=== PATIENT | male | born 1960 | race Caucasian/White ===

== ENCOUNTER 2016-12-24 10:26 | Day surgery (SDC) | payer OTHER ==
[~2016-12-24] VITALS: Ht 170.2 cm; Wt 73.0 kg
[~2016-12-24 10:26] MED LIST: 0.9% Sodium Chloride 1,000 ML IV SCH; AGM875T PO; Sodium Chloride LOK Flush 10 mL Syringe IV PRN; fentaNYL-PF 50 mCg/mL 2 mL Inj IVPUSH PRN
[2016-12-24 11:08] VITALS: BP 129/77; PULSE 69; RESP 16; O2SAT 97
[2016-12-24 12:40] VITALS: BP 118/67; PULSE 77; RESP 17; O2SAT 95
[2016-12-24 12:54] VITALS: BP 105/57; PULSE 76; RESP 16; O2SAT 97
--- NOTE | 2016-12-24 13:01 | ENDO ---
[address] [address] ENDOSCOPY PROCEDURE PATIENT: JOSE ANTONIO PILLAI : 1960 MR#: [id number] ADMIT: 12/24/2016 JOB ID: [id number] DATE: 12/24/2016 PRIMARY PROVIDER: Ryne Ramsay DO PROCEDURE: Colonoscopy with cold snare polypectomy and cold forceps polypectomy. INDICATIONS: A 56-year-old male with a history of colon polyps, returning for surveillance. EQUIPMENT: BonzerDarg-H180DL. SEDATION: Versed 5 mg, 100 mcg fentanyl. COMPLICATIONS: None identified. BOWEL PREPARATION: Fair, adequate exam. PROCEDURE IN DETAIL: After the risks and benefits were explained, written and verbal informed consent was obtained. The patient was brought into the endoscopy suite and placed into the left lateral decubitus position. Sedation was achieved using the above-stated medications with the addition of oxygen via nasal cannula. A digital rectal examination was accomplished and did not elicit any obvious anorectal pathology. The scope was introduced into the rectum and advanced under direct visualization to the level of the cecum, as identified by the appendiceal orifice and ileocecal valve. The scope was slowly withdrawn to carefully examine the mucosa for any defects or lesions. Retroflexed views were accomplished in the rectum. The colon was decompressed. The scope removed from the patient who tolerated the procedure well. FINDINGS: Minimal diverticulosis in the left colon. There was a small polyp in the cecum measuring approximately 5-6 mm removed with cold snare. We initially hooked up for electrocautery, but the snare came through this polyp prior to stepping on the pedal. There were no hemorrhagic complications. There was a second polyp removed from mid colon by way of cold forceps, and these two were submitted as "colon polyps." In the rectum, there were several hyperplastic-appearing polyps. A couple of these were submitted for histopathology. ENDOSCOPIC DIAGNOSES: 1. Multiple colon polyps. 2. Diverticulosis. RECOMMENDATIONS: 1. Await histopathology. 2. If both rectal polyps are hyperplastic, then repeat colonoscopy in five years. If either of the polyps in the rectum were found to be adenomatous, then I would recommend a repeat colonoscopy in three years.
--- NOTE | 2016-12-25 17:31 | PATH ---
SURGICAL PATHOLOGY Attending Physician:Charles Seaman CASE STATUS: Signed Out PATIENT NAME: JOSE ANTONIO PILLAI PID: [id number] : 1960 DATE COLLECTED:12/24/2016 22:34 SPECIMEN: 1: Colon, Biopsy 2: Rectum, Biopsy CLINICAL HISTORY: 1. COLON POLYPS 2. RECTAL POLYP FINAL DIAGNOSIS: 1. Colon Polyps: Tubular adenoma, two fragments. 2. Rectal Polyp: Hyperplastic polyp. ICD10 D12.6 K62.1 GROSS DESCRIPTION: The specimen is received in two formalin filled containers labeled with the patient's name. 1). The specimen is sublabeled "colon polyps" and consists of 2 portions of tissue which aggregate to 0.3 x 0.3 x 0.2 CM. The specimen is entirely submitted in cassette 1A. 2). The specimen is sublabeled "rectal polyp" and consists of 2 portions of tissue which aggregate to 0.3 x 0.3 x 0.3 CM. The specimen is entirely submitted in cassette 2A. 12/24/2016 [facility] MICRO DESCRIPTION: Please see diagnosis. ICD-9 CODES: CPT CODES: 1: 40413 2: 19903 Electronically Signed Out Yin Ward MD [facility] [address], [place] [address] Technical component performed at [facility], [address] [place] [address] Ave[address], [place], [address]
== END 2016-12-24 23:59 | disposition home or self-care (01) ==
LOC: END 10:26
PROVIDERS: ATTEND Internal Medicine Gastroenterology
DX: Z12.11 Encounter for screening for malignant neoplasm of colon (principal); D12.0 Benign neoplasm of cecum; D12.6 Benign neoplasm of colon, unspecified; K62.1 Rectal polyp; K57.30 Diverticulosis of large intestine without perforation or abscess without bleeding; Z86.010 Personal history of colon polyps; F17.210 Nicotine dependence, cigarettes, uncomplicated
CPT/HCPCS: 45380; 45385; 88305; 99153; G0500; J2250; J7030

== ENCOUNTER 2017-02-14 11:05 | Emergency (ER) | payer OTHER ==
[~2017-02-14] VITALS: Ht 170.2 cm; Wt 72.7 kg
[2017-02-14 11:11] VITALS: BP 110/74; PULSE 60; RESP 16; O2SAT 100
[2017-02-14] MEDS ORDERED: NAPR220C11 PO (11:14)
--- NOTE | 2017-02-14 11:51 | ED.REPORT ---
HPI-URI / Cough / Cold Date of Service Feb 14, 2017 ED Provider: Awa Rehman History of Present Illness: 57-year-old male here for right-sided maxillary and frontal sinus pain. He has been having pain 1 month. It did start with a URI. After that URI started getting the right-sided face pain. He went to his doctor received a course of a penicillin-based antibiotic. Pain got better for one day after the antibiotic and then it came back. He visited his doctor again and got a Z-Landon the pain went away for 2 days after finishing the course, but pain returned He is been treating the pain effectively with Aleve. Sometimes he has to take double doses. He has not had any congestion on the right side, he has no fever and feels otherwise well. It is worse when he hangs his head below his waist line or when he is lying back. Drinking beer seems to exacerbate his symptoms. He is a smoker. If he does not take Aleve does turn into a bad headache as well. He has not been nauseous or vomiting. No cough or cold symptoms. He is otherwise healthy. Nursing Notes Stated Complaint: SINUS HEADACHES Chief Complaint: Headache Nursing Notes Reviewed: Yes Allergies: Coded Allergies: No Known Allergies (Unverified , 12/24/16) Scheduled Naproxen Sodium (Aleve) 220 Mg Capsule 1-2 TAB PO BID Prednisone (PredniSONE) 20 Mg Tablet 20 MG PO BID General Time Seen by MD: 11:22 Chief Complaint Facial pain Hx Obtained From: Patient Arrived By: Walk-in Onset Occurred: More than a week ago... (1 month) Symptom Duration: Waxes and wanes Location: : Sinus frontal right: Sinus maxillary right Quality: Painful Radiation: Does not radiate Severity: Current: Moderate Severity: Maximum: Severe Similar Sx Previous: Yes Past Medical History Past Medical History Notes: treated 2x with abx with no relief Past Medical History Reports: COPD Past Surgical History Denies Smoking History Current Every Day Smoker Social History Alcohol Use: 3-5 per day Other Social History: Good social support Ambulatory Status Independent Review of Systems Basic Review of Systems Cardiovascular: No chest pain, No dyspnea on exertion, No orthopnea, No parox noct dyspnea, No palpitations Musculoskeletal: No extremity swelling, No extremity pain, Full range of motion Hematologic: No bleeding, No bruising Psychiatric: Normal thought content Constitutional: Denies: Chills, Fatigue, Fever Eyes: Denies: Blurred left, Blurred right, Eye pain bilateral, Eye pain left, Eye pain right, Visual loss left, Visual loss right Ears / Nose / Throat: Reports: Sinus problem, Denies: Ear drainage left, Ear drainage right, Ear ringing bilateral, Earache bilateral, Hearing loss bilateral, Nasal congestion, Nose bleeding, Throat pain Respiratory: Denies: Dyspnea on exertion GI: Denies: Abdominal pain, Nausea, Vomiting Skin: Denies Bruising, Denies Diaphoresis Neurologic: Reports: Headache, Denies: Change LOC, Confusion, Dizziness, Focal weakness, Lightheaded, Numbness, Problem walking, Slurred speech, Syncope, Weakness Complete sys rev & neg: except as marked. Physical Exam Initial Vital Signs Vital Signs (First) Date Time Temp Pulse Resp B/P Pulse Ox O2 Delivery O2 Flow Rate FiO2 02/14/17 11:11 36.4 60 16 110/74 100 Room Air Initial VS: Reviewed Head / Eyes: Atraumatic, Normocephalic, PERRL Neck: Supple, Non-tender, Full range of motion Cardiovascular: Regular rate & rhythm, Heart sounds normal, Intact distal pulses Abdomen / GI: Soft, Non-tender Lymphatic: No lymphadenopathy Skin: Warm, Dry, No cyanosis Neurologic: Alert, Oriented, Nonfocal Psychiatric: Mood/affect normal, Behavior normal, Normal thought content ENT: Atraumatic, Airway patent, Mucous membranes moist, Pharynx NL, No peritonsillar abscess, No pooling of secretions, No trismus, Tympanic membs NL, Ext aud canal NL, Mastoid area NL, Nose exam NL, No sinus tenderness, No facial swelling, Gums/dentition NL Respiratory / Chest: Atraumatic, Breath sounds NL, Breath sounds = bilat, No respiratory distress, No rales, No rhonchi, No wheezing, No retractions Interpretation & Diagnostics Interpretation & Diagnostics: IMPRESSION: 1. Mucosal thickening in the right frontal sinus. 2. Mucous retention cysts versus polyps in the right maxillary sinus and the right sphenoid sinus. Re-Eval/Medical Decision Med Decision/Clinical Course Med Decision/Clinical Course: discussed mucosal thickening and polyps noted but no bacterial involvement. will do steroids and ENT f/u. May need sinus surgery in the future Discharge & Departure Shift Change Sign-Out Discussed Complaint(s): Yes Imaging Studies: Imaging discussed Impression: Primary Impression: Sinusitis with nasal polyps Disposition: Home Discharge Condition All VS Reviewed: Yes Condition: Stable Patient Instructions: Sinusitis (ED) Additional Instructions: Take steroids as directed for sinus symptoms. Follow up with ENT. If worsening symptoms, fever, no relief in pain return to the ER or follow-up immediately. Otherwise return as needed Referrals: Ryne Ramsay DO (PCP) Sukhjinder Guerrero MD EDSupervising Provider for APC: Vincenzo Chen MD copies to: Sukhjinder Guerrero MD, Linnea K ARNP Feb 14, 2017 11:51
--- NOTE | 2017-02-14 12:31 | DRSVH ---
PROCEDURE: CT SINUSES ([id number]) INDICATIONS: max/frontal sinus pain x 1 month TECHNIQUE: Noncontrast 3.0 mm axial images acquired from the frontal sinuses to the mid-sella, with coronal and sagittal reformats. COMPARISON: None. FINDINGS: Mild mucosal thickening noted in the right frontal sinus. Scattered opacities noted in the ethmoid a ir cells bilaterally. Large mucous retention cysts versus polyps are noted in the right maxillary si nus. Small mucous retention cyst is in noted in the right sphenoid sinus. The osteomeatal units are patent bilaterally. No solomon bullosa or paradoxical turbinates. Nasal septum is slightly deviated to the left. IMPRESSION: 1. Mucosal thickening in the right frontal sinus. 2. Mucous retention cysts versus polyps in the right maxillary sinus and the right sphenoid sinus. Dictated by: Estella Powell MD, PhD on 02/14/2017 at 12:27 Approved by: Estella Powell MD, PhD on 02/14/2017 at 12:30
[2017-02-14] MEDS ORDERED: PRE20 PO (13:14)
== END 2017-02-14 13:39 | disposition home or self-care (01) ==
LOC: SED 11:24
DX: J32.9 Chronic sinusitis, unspecified (principal); J33.8 Other polyp of sinus; J44.9 Chronic obstructive pulmonary disease, unspecified; F17.200 Nicotine dependence, unspecified, uncomplicated

== ENCOUNTER 2017-04-07 13:00 | Emergency (ER) | payer OTHER ==
[~2017-04-07] VITALS: Ht 170.2 cm; Wt 72.7 kg
[~2017-04-07 13:00] MED LIST changes: -0.9% Sodium Chloride 1,000 ML IV SCH; -AGM875T PO; +NAPR220C11 PO; +PRE20 PO; -Sodium Chloride LOK Flush 10 mL Syringe IV PRN; -fentaNYL-PF 50 mCg/mL 2 mL Inj IVPUSH PRN
[2017-04-07 13:17] VITALS: BP 136/79; PULSE 70; RESP 14; O2SAT 100
--- NOTE | 2017-04-07 13:21 | ED.REPORT ---
HPI-Chest Pain 40 and Over Date of Service April 07, 2017 ED Provider: Kameron Villalba DO A 57 year old male with a history of smoking, COPD and an episode of similar symptoms presents to the ED complaining of chest discomfort. He describes the discomfort as a tight feeling lasting 20 to 30 minutes that radiated into his jaw. The pain steadily increased and was not exacerbated by exertion. He denies shortness of breath, nausea, diaphoresis, abdominal pain or lower extremity edema. The pt experienced similar symptoms in 10/2016 just before a syncopal episode for which he was seen in the ED. The pt had sinus surgery six days ago and just finished his Prednisone last night. Nursing Notes Stated Complaint: JAW AND CHEST PAIN Chief Complaint: Chest Pain Nursing Notes Reviewed: Yes Allergies: Coded Allergies: No Known Allergies (Unverified , 12/24/16) Scheduled Naproxen Sodium (Aleve) 220 Mg Capsule 1-2 TAB PO BID Prednisone (PredniSONE) 20 Mg Tablet 20 MG PO BID General Time Seen by MD: 13:19 Chief Complaint Chest pain Hx Obtained From: Patient Arrived By: Walk-in Sudden in Onset?: Yes Onset Occurred: 31 - 45 minutes ago Symptom Duration: 16 - 30 minutes Recent Healthcare: Recent doctor visit, Recent hospitalization Similar Sx Previous: Yes Past Medical History Past Medical History syncope COPD Past Surgical History none reported Smoking History Current Every Day Smoker Social History Alcohol Use: 3-5 per day Other Social History: Good social support, Ambulatory Status Independent Review of Systems Review of Systems Note: "tight" chest discomfort jaw pain pale denies lower extremity edema Constitutional: Denies: Fever Respiratory: Denies: Shortness of breath GI: Denies: Abdominal pain, Nausea Skin: Denies Diaphoresis, Denies Rash Complete sys rev & neg: except as marked. Physical Exam Initial Vital Signs Vital Signs (First) Date Time Temp Pulse Resp B/P Pulse Ox O2 Delivery O2 Flow Rate FiO2 04/07/17 13:17 37 70 14 136/79 100 Initial VS: Reviewed General/Constitutional: Awake, Alert thin Respiratory / Chest: Atraumatic, Breath sounds NL, Breath sounds = bilat, No respiratory distress Cardiovascular: Heart rate NL, Regular rhythm, Heart sounds NL Abdomen: Atraumatic, Soft, Non-tender Neck: Atraumatic, Supple, Full range of motion Back: Atraumatic, Full range of motion Lower Extremity / Pelvis / MS: Atraumatic, Full range of motion Skin: Atraumatic, Color NL, No rash, Warm, Dry Neurologic: Oriented X3, Speech NL, No motor deficits, No sensory deficits Psychiatric: Affect NL, Mood NL Head / Eyes: Atraumatic, Normocephalic, PERRL, EOMI ENT: Atraumatic, Airway patent, Mucous membranes moist Upper Extremity / MS: Atraumatic, Full range of motion Interpretation & Diagnostics Lab Results Interpretation Result Diagram: 04/07/17 1310 04/07/17 1310 Test 04/07/17 13:10 White Blood Count 9.8th/mm3 (3.8-10.1) Red Blood Count 4.87mil/mm3 (4.40-5.80) Hemoglobin 15.2g/dL (13.8-17.2) Hematocrit 43.4% (41.0-50.0) Mean Corpuscular Volume 89.1fL (81-100) Mean Corpuscular Hemoglobin 31.2pg (27.0-35.0) Mean Corpuscular Hemoglobin Concent 35.0% (32.0-37.0) Red Cell Distribution Width 13.8% (12.3-15.4) Platelet Count 325bil/L (150-400) Neutrophils (%) (Auto) 72.0% (40-74) Lymphocytes (%) (Auto) 20.6% (14-46) Monocytes (%) (Auto) 6.4% (4-12) Eosinophils (%) (Auto) 0.4% (0-5) Basophils (%) (Auto) 0.1% (0-3) D-Dimer < 0.50mg/L FEU (<0.50) Sodium Level 138mEq/L (134-144) Potassium Level 4.0mEq/L (3.5-5.2) Chloride Level 97mEq/L (97-108) Carbon Dioxide Level 26mmol/L (18-29) Blood Urea Nitrogen 16mg/dL (6-24) Creatinine 0.69mg/dL (0.76-1.27) Estimat Glomerular Filtration Rate 125mL/min (>59) Glucose Level 95mg/dL (60-99) Calcium Level 9.7mg/dL (8.5-10.1) Magnesium Level 2.1mg/dL (1.6-2.6) Total Bilirubin 0.4mg/dL (0.0-1.2) Aspartate Amino Transf (AST/SGOT) 18U/L (0-50) Alanine Aminotransferase (ALT/SGPT) 23U/L (0-44) Alkaline Phosphatase 49U/L (25-160) Troponin T < 0.010ug/L (0.0-0.011) Total Protein 7.2g/dL (6.4-8.4) Albumin 4.5g/dL (3.4-5.0) ECG Interpretation ECG Interpretation: normal sinus rhythm with a rate of 67 probable anteroseptal infarct, old Time: 13:43 Interpreted by: ED physician X-Ray Chest Interpretation Chest Xray Interpretation: IMPRESSION: No acute cardiopulmonary disease. Dictated by: Rafi Thomson M.D. on 04/07/2017 at 13:57 Approved by: Rafi Thomson M.D. on 04/07/2017 at 13:58 Interpretation / Wet Read by: Interpret - Radiologist Re-Eval/Medical Decision Med Decision/Clinical Course Chest pain with radiation to jaw somewhat concerning for angina. Initial troponin negative however will need serial exams and further discussion regarding admission versus close follow-up and discharge. Care transferred to Dr. Claros Source of Hx: Old records Counseled Regarding: Diagnosis, Lab results, Need for follow-up, When/why to return to ED Discharge & Departure Shift Change Sign-Out Patient Care Transferred: Yes Discussed Complaint(s): Yes Laboratory Evaluation: Ordered, not yet done Imaging Studies: Imaging discussed Primary Impression: Chest pain Disposition: Home Discharge Condition All VS Reviewed: Yes Condition: Stable Referrals: [facility] [place]chely Attestation Portions of this note were transcribed by David Rosado. I, Dr. Villalba personally performed the history, physical exam and medical decision-making; I reviewed and confirmed the accuracy of the information in the transcribed note. Signed by: Natalie Acevedo, 04/07/2017 and 1429. copies to: [facility] DeejayKameron Moody April 07, 2017 13:21 DAVID ROSADO April 07, 2017 13:53
[2017-04-07 13:53] LABS: BASOPHILS % (AUTO) 0.1 % (0-3); EOSINOPHILS % (AUTO) 0.4 % (0-5); MONOCYTES % (AUTO) 6.4 % (4-12); Mean Corpuscular Hemoglobin 31.2 pg (27.0-35.0); Mean Corpuscular Volume 89.1 fL (81-100); Platelet Count 325 bil/L (150-400)
--- NOTE | 2017-04-07 13:59 | DRSVH ---
PROCEDURE: X-RAY CHEST ONE VIEW, PORTABLE ([id number]) INDICATIONS: 57-year-old male with episode of chest pain. TECHNIQUE: One view of the chest was acquired. COMPARISON: [facility], CR, CHEST 2VW, 06/05/2009, 10:08. FINDINGS: Surgical changes and devices: None. Lungs and pleura: No pleural effusions or pneumothorax. Lungs are clear. Mediastinum: Mediastinal contours appear normal. Heart size is normal. Bones and chest wall: No suspicious bony lesions. Overlying soft tissues appear unremarkable. IMPRESSION: No acute cardiopulmonary disease. Dictated by: Rafi Thomson M.D. on 04/07/2017 at 13:57 Approved by: Rafi Thomson M.D. on 04/07/2017 at 13:58
[2017-04-07 14:32] LABS: TROPONIN T < 0.010 ug/L (0.0-0.011)
[2017-04-07 14:33] LABS: Magnesium 2.1 mg/dL (1.6-2.6)
[2017-04-07 15:14] VITALS: BP 121/78; PULSE 72; RESP 13; O2SAT 98
[2017-04-07 15:57] VITALS: BP 125/68; PULSE 77; RESP 15; O2SAT 98
[2017-04-07 16:01] VITALS: BP 101/48; PULSE 131; RESP 15; O2SAT 99
[2017-04-07 17:41] VITALS: BP 133/70; PULSE 74; RESP 19; O2SAT 98
[2017-04-07 18:33] VITALS: BP 116/81; PULSE 93; RESP 23; O2SAT 97
[2017-04-07 19:27] LABS: BASOPHILS % (AUTO) 0.2 % (0-3); MONOCYTES % (AUTO) 10.4 % (4-12); Mean Corpuscular Hemoglobin 31.2 pg (27.0-35.0); Mean Corpuscular Volume 89.7 fL (81-100); Platelet Count 313 bil/L (150-400)
== END 2017-04-07 18:34 | disposition home or self-care (01) ==
LOC: SED 13:00 → EDBD 13:00 → EDUNIT# 13:00 → SED 18:34
DX: R07.89 Other chest pain (principal); J44.9 Chronic obstructive pulmonary disease, unspecified; F17.200 Nicotine dependence, unspecified, uncomplicated

== ENCOUNTER 2017-04-07 18:53 | Observation (INO) | payer OTHER ==
[2017-04-07] VITALS (8 sets, daily range): BP systolic 96–118; BP diastolic 56–80; PULSE 64–81; RESP 11–18; O2SAT 96–100
[~2017-04-07] VITALS: Ht 170.2 cm; Wt 69.2 kg
[2017-04-07] MEDS ORDERED: 0.9% Sodium Chloride 1,000 ML IV ONE ×2 (19:10→22:10)
--- NOTE | 2017-04-07 20:02 | DRSVH ---
PROCEDURE: CT ABDOMEN AND PELVIS WITH CONTRAST ([id number]) INDICATIONS: abd pain TECHNIQUE: After the administration of intravenous contrast, 5 mm thick sections acquired from the diaphragm to the symphysis. 5 mm coronal and sagittal reformats were acquired. For radiation dose reduction, the following was used: automated exposure control, adjustment of mA and/or kV according to patient raghav mo. COMPARISON: Located Within [facility], CT, CT ABD PELVIS W CON, 11/07/2016, 23:16. FINDINGS: Image quality: Excellent. ABDOMEN: Lung bases: Lung bases are clear. Heart size is normal. Solid organs: 4 mm hypodensity in the right lobe liver on image 22 is too small to characterize brown daniel unchanged since 11/07/16. Otherwise, liver and spleen are normal in size and enhancement. Gallbla dder unremarkable. Biliary system is non dilated. Pancreas enhances normally. No adrenal nodules. Simple appearing left renal cyst measuring 2 cm in the inferior pole, grossly unchanged. No hydroneph rosis. Peritoneum and bowel: Bowel loops demonstrate normal wall thickness and caliber. No free fluid or a ir. The appendix appears normal. The rectum contains a large amount of stool otherwise unremarkable. Nodes and vessels: No retroperitoneal or mesenteric adenopathy by size criteria. Aorta and inferior vena cava are normal in size. Miscellaneous: No ventral hernias. PELVIS: Genitourinary: Bladder wall thickness is normal. Miscellaneous: No inguinal hernias or adenopathy. Bones: No suspicious bony lesions. No vertebral body compression fractures. IMPRESSION: Overall, no acute abnormality. Normal appendix. Unchanged left renal cyst. Large amount of stool raising possibility of constipation or fecal impaction. Please correlate clinic ally Dictated by: Christofer Astudillo M.D. on 04/07/2017 at 19:55 Approved by: Christofer Astudillo M.D. on 04/07/2017 at 19:59
[2017-04-07 21:01] LABS: BASOPHILS % (AUTO) 0.2 % (0-3); MONOCYTES % (AUTO) 9.7 % (4-12); Mean Corpuscular Hemoglobin 31.5 pg (27.0-35.0); Mean Corpuscular Volume 89.9 fL (81-100); NEUTROPHILS % (AUTO) 61.9 % (40-74); Platelet Count 326 bil/L (150-400)
--- NOTE | 2017-04-07 21:32 | ED.REPORT ---
HPI-Syncope Date of Service April 07, 2017 ED Provider: Juan R Claros MD 57 y/o male with a hx of COPD and diverticulitis presents to the ED complaining of near syncope, onset today. The pt had been seen at the ED earlier today for chest discomfort which radiated to his jaw. He was discharged with a plan for follow up. On his drive back home from the ED, the pt began experiencing abdominal pain and near syncope. Associated sx include lightheadedness, dizziness and diaphoresis. Pt denies chest discomfort and jaw pain. Nursing Notes Stated Complaint: BLACKING OUT, DIZZY Chief Complaint: General Complaint Nursing Notes Reviewed: Yes ([employer], ) Allergies: Coded Allergies: No Known Allergies (Unverified , 04/07/17) No Active Prescriptions or Reported Meds General Time Seen by Provider: 19:08 Chief Complaint Other (near syncope) Syncope Description: This episode different Hx Obtained From: Patient, Spouse Arrived By: Walk-in Onset Occurred: Just prior to arrival Context of Onset: Abdominal pain preceded Location: : Abdomen Quality: Painful Severity: Current: Mild Severity: Maximum: Mild Recent Healthcare: Recent doctor visit (just left ED) Similar Sx Previous: No Past Medical History Past Medical History Notes: Past Medical History syncope COPD Reports: Diverticulitis Past Surgical History none reported Smoking History Current Every Day Smoker Social History Alcohol Use: 3-5 per day Other Social History: Good social support, Ambulatory Status Independent Review of Systems Cardiovascular: Denies: Chest pain GI: Reports: Abdominal pain, Denies: Nausea, Vomiting Skin: Reports Diaphoresis Neurologic: Reports: Dizziness, Lightheaded, Syncope Complete sys rev & neg: except as marked. Physical Exam Initial Vital Signs Vital Signs (First) Date Time Temp Pulse Resp B/P Pulse Ox O2 Delivery O2 Flow Rate FiO2 04/07/17 18:59 36.5 68 12 96/56 100 Room Air Initial VS: Reviewed Head / Eyes: Atraumatic, Normocephalic, PERRL ENT: Mucous membranes moist, Conjunctiva normal, No scleral icterus Neck: Supple, Non-tender, Full range of motion Upper Extremities: Vascular intact, Neuro intact, No swelling, No tenderness Skin: Warm, Dry, No cyanosis General/Constitutional: Awake, Alert, Cooperative Appearance / Presentation: Positive: Ill appearing/not toxic resolving Diaphoresis Hypotensive -> this rapidly resolved Respiratory / Chest: Atraumatic, Breath sounds NL, Breath sounds = bilat, No respiratory distress, No rales, No rhonchi, No wheezing Cardiovascular: Heart rate NL, Regular rhythm, Heart sounds NL, No gallop, No murmurs Heart Sounds / Murmur: Negative: Murmur present... Lower Extremity / Pelvis / MS: Atraumatic, Full range of motion, No swelling Neurologic: Oriented X3, Speech NL, No motor deficits, No sensory deficits Abdomen: Atraumatic, Soft, Non-tender, No guarding, No rebound Abdominal pain has resolved. No abdominal aortic mass. No clinical tenderness Interpretation & Diagnostics Interpretation & Diagnostics: Please see the additional laboratory testing performed on previous ED visit hours earlier today Lab Results Interpretation Result Diagram: 04/07/17 1910 Test 04/07/17 19:10 White Blood Count 10.2th/mm3 (3.8-10.1) Red Blood Count 4.67mil/mm3 (4.40-5.80) Hemoglobin 14.7g/dL (13.8-17.2) Hematocrit 42.0% (41.0-50.0) Mean Corpuscular Volume 89.9fL (81-100) Mean Corpuscular Hemoglobin 31.5pg (27.0-35.0) Mean Corpuscular Hemoglobin Concent 35.0% (32.0-37.0) Red Cell Distribution Width 13.9% (12.3-15.4) Platelet Count 326bil/L (150-400) Neutrophils (%) (Auto) 61.9% (40-74) Lymphocytes (%) (Auto) 26.6% (14-46) Monocytes (%) (Auto) 9.7% (4-12) Eosinophils (%) (Auto) 1.0% (0-5) Basophils (%) (Auto) 0.2% (0-3) Troponin T 0.010ug/L (0.0-0.011) Thyroid Stimulating Hormone (TSH) 3.160uIU/mL (0.450-4.500) Lab Results Interpretation: Repeat CBC normal repeat troponin negative ECG Interpretation ECG Interpretation: Repeat EKG is normal and unchanged from earlier today at 13:43 normal sinus rhythm with a rate of 67 probable anteroseptal infarct, old Time: 19:00 Interpreted by: ED physician CT Abd / Pelvis Interpretation IMPRESSION: Overall, no acute abnormality. Normal appendix. Unchanged left renal cyst. Large amount of stool raising possibility of constipation or fecal impaction. Please correlate clinically Dictated by: Christofer Astudillo M.D. on 04/07/2017 at 19:55 Approved by: Christofer Astudillo M.D. on 04/07/2017 at 19:59 Study type: Abdominal CT IV contrast Interpretation / Wet Read by: Interpret - Radiologist Re-Eval/Medical Decision Med Decision/Clinical Course His is a 57-year-old male A chest seen and discharged following an evaluation for an episode of chest discomfort rating the jaw. EKGs, several sets of enzymes, no heart score was discharged with plan for follow-up. I run the drive home he developed abdominal pain, and became lightheaded and dizzy and near syncopal. He did not have chest pain, jaw discomfort and reports these are entirely different symptoms than he had previously that he been seen in the emergency department for. He has had a previous episode of syncope and describes a vasovagal diagnosis. I according to the nurses on initial arrival he appeared very ill, diaphoretic, and was hypotensive-all of these resolved rapidly. No dysrhythmia was identified. He did not have clinical palpitations. Abdominal pain when this initially happened, but even that is now resolved when I see him. On exam very much more fatigued-appearing he appeared normal when he left just previously. He has resolving diaphoresis. His repeat exams otherwise normal, abdomen soft nontender no appreciate an abdominal aortic mass. Repeat EKG is normal, unchanged. Repeat CBC, unchanged. A third troponin was obtained and was negative. At this point an abdominal CT was also obtained given the etiology of the presentation still remains unclear, and it was negative for clear acute pathology. This point a definitive etiology for these constellations of symptoms either the chest discomfort he had earlier today or the abdominal pain and syncope/ near syncope expresses a has not been identified. His d-dimer was negative, no features suggestive ulnar embolism. At this point is being admitted observation status for continued monitoring and evaluation. Case discussed the hospice. Source of Hx: Old records Re-Evaluation/Progress #1: Time of Eval: 19:25 Re-Evaluation/Progress Note: Rechecked pt. He reports little improvement in his sx. Informed the pt of the plan to admit. Re-Evaluation/Progress #2: Time of Eval: 20:10 Re-Evaluation/Progress Note: Pt rechecked. Discussed lab, imaging results and plan to admit. Pt understands and agrees with the plan for admission. All questions addressed Consultation : Referral / Consult Name: James Blount MD Consulted With: Hospitalist Call Returned at: 20:30 Environmental Journalist: Will see patient, Agrees with eval, Accepts admit Differential Diagnosis: Negative: Abdominal aortic aneurysm, Alcohol abuse, Cerebrovascular accident, Chest pain, acute, Closed head injury, Electrolyte disorder, Head trauma, Hypoglycemia, Intracranial bleed, Malingering, Prolonged QT syndrome, Thoracic aortic dissect Counseled Regarding: Diagnosis, Lab results, Need for admission Discharge & Departure Impression: Primary Impression: Near syncope Additional Impressions: Abdominal pain Abdominal location: unspecified location Qualified Code: R10.9 - Unspecified abdominal pain Chest pain Chest pain type: unspecified Qualified Code: R07.9 - Chest pain, unspecified Disposition: ADMITTED TO HOSPITAL Discharge Condition All VS Reviewed: Yes Referrals: Ryne Ramsay DO (PCP) Scribe Attestation Portions of this note were transcribed by Yudelka Ding. I, , personally performed the history, physical exam and medical decision-making;I reviewed and confirmed the accuracy of the information in the transcribed note. Signed by Natalie Membreno. 04/07/17 [id number] copies to: Ryne Ramsay Matthew F MD April 07, 2017 21:32 Yudelka Ding April 07, 2017 22:05
[2017-04-07] MEDS ORDERED: Senna-Docusate 8.6-50 mg Tablet PO PRN (21:55)
[2017-04-07] MEDS ORDERED: Alum-Mag Hydrox-Simeth 30 mL Suspension PO PRN (21:55)
[2017-04-07] MEDS ORDERED: Ondansetron 2 mg/mL 2 mL Inj IVPUSH PRN (21:55)
[2017-04-07] MEDS ORDERED: Polyethylene Glycol (PEG) 17 Gm Powder PO PRN (21:55)
--- NOTE | 2017-04-07 23:27 | NUR ---
admit: admit assessment complete. pt A&OX3. reports having recent sinus surgery with stent placement X7days ago, reports f/u appt for this procedure and stent removal was suppose to be tomorrow. pt denies pain at this time. IVF infusing per orders. pt aware of plane, stress test and echo in am. will continue to monitor pt.
--- NOTE | 2017-04-08 00:23 | PCM.HPMED ---
Subjective Date of Service April 07, 2017 Primary Provider: Admitting Physician: Primary Care Physician: Ryne Ramsay DO Attending Physician: Chief Complaint: chest pain History of Present Illness: 57-year-old male with history of tobacco dependence, COPD, and chronic sinusitis with recent ENT surgery who originally presented to the ED earlier today for complaints of chest pressure with right jaw pain that began around lunchtime. Patient described that chest pressure as a dull substernal ache that lasted about 20-30 minutes and reported radiation to his right jaw. The patient noted previous right jaw pain but not to this extent so he was worried and came in for evaluation. He also noted some mild numbness and tingling of his fingertips with the chest pain episode, but denied any shortness of breath, nausea, diaphoresis, dizziness, vision changes, focal weakness, or headache. By the time he reached the ED his symptoms had resolved. In the ED, his vitals were noted to be normal and stable. His CBC and CMP were unremarkable and he had troponins needed 3. He also had a benign EKG, so he was discharged home with instructions to follow up with PCP for an outpatient stress test. After discharge, on the way home patient noted that he acutely became dizzy and had a near syncopal episode. Luckily his is driving and return back to the ER for further evaluation. It was noted by ER staff that on re-admission, patient was pale, diaphoretic, and lethargic. He was noted to be hypotensive with a blood pressure 96/56, but remain afebrile with a pulse of 68, saturating 100% percent on room air. A repeat EKG was performed, which showed normal sinus rhythm with a rate of 67 and probable anteroseptal old infarct. This was essentially unchanged. Patient did complain of some abdominal pain upon arrival to the ER so a CT abdomen was performed, which showed moderate stool impaction but no other acute disease. Patient reports that with the second incident he did not have any chest pain, shortness of breath, jaw pain, or headache. He did not notice any triggers and reports he has not had any URI symptoms recently. He reports he had a similar presentation last October when he had a syncopal episode, was taken to the ER, and subsequently diagnosed with diverticulitis with stool impaction. He reports he was sent home with antibiotics. Subsequent outpatient colonoscopy showed diverticulosis with a couple tubular adenoma polyps. Prior to today, patient reports he has been at baseline. He is able to perform his ADLs without any dyspnea or chest pain. He denies any recent medication changes, but has been on multiple antibiotic courses for his sinusitis. He recently has sinus surgery with ENT and just completed a short prednisone course. Prior to the surgery he was taking plenty of narcotics, he reports, but he has tapered himself off of that has not taken any in the past few days. He reports he generally drinks 3-6 beers per night, but has not had any since the surgery one week ago. Denies any illicit drug usage. 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 Hx Alcohol Use: Yes (DAILY 3-6 BEERS /DAY ) Hx Substance Use: No Smoking Status: Current Every Day Smoker (1 ppd) Living Arrangement: with Family Exam Vital Signs Vital Sign - Last Date Time Temp Pulse Resp B/P Pulse Ox O2 Delivery O2 Flow Rate FiO2 04/07/17 20:41 81 15 108/57 96 Room Air 04/07/17 18:59 36.5 Exam General: Well-developed male who appears in no acute distress, alert and oriented 3 HEENT: NC/AT, PERRLA, EOMI, sclerae anicteric, oropharynx moist and pink Neck: Soft, nontender, trachea midline CV: Regular rate and rhythm with no M/R/C noted, peripheral pulses intact and equal Respiratory: Mild end expiratory wheeze, no rhonchi or crackles, no respiratory effort, chest nontender to palpation Abdomen: Soft, nontender, nondistended, NABS MSK: Muscle strength grossly intact and equal, no swollen or tender joints, no clubbing or edema noted Neuro: Cranial nerves II at 12 grossly intact, face symmetric, speaks full sentences Skin: Warm, dry, intact, no rashes noted Psych: Appropriate mood and affect, linear thought process, cooperative Lab and Diagnostics Result Diagram: 04/07/171909 X-Rays, CTs and MRIs PROCEDURE: X-RAY CHEST ONE VIEW, PORTABLE ([id number]) IMPRESSION: No acute cardiopulmonary disease. PROCEDURE: CT ABDOMEN AND PELVIS WITH CONTRAST ([id number]) IMPRESSION: Overall, no acute abnormality. Normal appendix. Unchanged left renal cyst. Large amount of stool raising possibility of constipation or fecal impaction. Please correlate clinically 12-lead ECG normal sinus rhythm with a rate of 67 probable anteroseptal infarct, old Assessment & Plan 57-year-old male with history of tobacco dependence, COPD, and chronic sinusitis with recent ENT surgery who originally presented to the ED earlier today for complaints of chest pressure with right jaw pain that began around lunchtime. He was discharged home and then returned for a near syncopal episode shortly after discharge. Near syncopal episode, POA Uncertain of etiology. Ddx vasovagal, aortic insufficiency, hypoglycemia, orthostatic hypotension, hypoxia. No trauma noted, no seizure-like activity noted by Will place on telemetry for CV monitoring Patient is mildly hypotensive, will obtain orthostatic vital signs, and give IV NS 150 mL per hour Chest pain, POA Patient had brief substernal chest pain this morning with concerning right sided jaw radiation. Troponins have been negative 3, though with patient's concerning near syncopal episode We will plan to obtain an echocardiogram and stress test COPD, POA Not in acute exacerbation DuoNeb when necessary for shortness of breath Recommend outpatient follow-up Tobacco Dependence, POA Cessation encouraged Nicotine patch when necessary Tylenol when necessary for pain/fever Zofran when necessary for nausea Bowel regimen when necessary constipation CODE STATUS: Full resuscitation Disposition: Patient is admitted under observation status with expected length of stay less than 2 midnights due to risk of adverse events, decompensation, and medical complexity Pain Evaluation: Adequate Pain Control VTE Prophylaxis: Sub-Q Enoxaparin, SCDs Resuscitation Status: CPR: Attempt Resuscitation Attending Statement The patient was seen and examined together with Dr. Torres on 04/07 and I agree with the history, exam and plan as outlined in the note above. Kunal Torres DO April 07, 2017 21:35 James Blount MD April 08, 2017 02:27
[2017-04-08] MEDS: Sodium Chloride LOK Flush 10 mL Syringe IVFLUSH SCH ×3 (00:30→16:38)
[2017-04-08 04:06] VITALS: BP 123/84; PULSE 69; RESP 18; O2SAT 99
[2017-04-08 06:34] LABS: BASOPHILS % (AUTO) 0.1 % (0-3); MONOCYTES % (AUTO) 10.3 % (4-12); Mean Corpuscular Hemoglobin 30.7 pg (27.0-35.0); Mean Corpuscular Volume 91.1 fL (81-100); NEUTROPHILS % (AUTO) 68.2 % (40-74); Platelet Count 288 bil/L (150-400)
[2017-04-08 07:01] LABS: TROPONIN T 0.01 ug/L (0.0-0.011)
[2017-04-08 10:01] VITALS: BP 120/83; PULSE 72; RESP 18; O2SAT 98
[2017-04-08 11:03] VITALS: PULSE 84
--- NOTE | 2017-04-08 12:13 | NUR ---
Refusal of MIBI Pt refused to go to MIBI this morning due to concerns with recent sinus surgery. Pt is req that hospitalist and ENT MD communicate to ensure testing is safe. Hospitalist on unit and informed of pt's concerns.
--- NOTE | 2017-04-08 12:24 | NUR ---
Communication with ENT Phoned [facility] ([phone]) in an attempt to reach Dr Guerrero to clarify that pt is stable to do stress test today. Per office, MD's do not accept paged during lunch hour - message left to call this RN back when available. Addendum: 04/08/17 at 1401 by DEB DEJESUS RN Spoke with ENT MD Guerrero's MA re: stress test (specifically treadmill and pt's concerns) and per MD he is able to do the test with no concerns. [facility] notified that pt is able to test per ENT and hospitalist aware as well.
--- NOTE | 2017-04-08 13:38 | DRSVH ---
[facility] [address] [place] [address] Echocardiogram Report Name: JOSE ANTONIO PILLAI Date: 04/08/2017 Height: 67 in Hospital Exam Location: [facility] Weight: 157 lb Gender: Male BSA: 1.8 m2 : 1960 Age: 57 yrs BP: 123/67 mmHg Reason For Study: Chest pain Ordering Physician: James Bettencourt Performed By: Will Starr Referring Physician: SHAYY ONEAL Interpretation Summary The ejection fraction is estimated to be 50-55%. A patent foramen ovale is present. There is no significant valvular heart disease. Procedure: A two-dimensional transthoracic echocardiogram with color flow and Doppler was performed. There is no prior echocardiogram noted for this patient. The study quality was technically adequate. The patient was in normal sinus rhythm during the exam. Left Ventricle: The left ventricle is normal in size. There is normal left ventricular wall thickness. The ejection fraction is estimated to be 50-55%. Spectral Doppler of the mitral inflow yields an E/A ratio that is between 0.8 and 1.5. Right Ventricle: The right ventricle is normal in size and function. Atria: The left atrial size is normal. Right atrial size is normal. Borderline right atrial enlargement. A patent foramen ovale is present. Mitral Valve: The mitral valve is normal in structure and function. There is trace mitral regurgitation. Aortic Valve: The aortic valve is normal in structure and function. There is trace aortic regurgitation. Tricuspid Valve: The tricuspid valve is normal in structure and function. Pulmonary artery pressures cannot be estimated because of the lack of a measurable TR jet velocity. There is trace tricuspid regurgitation. Pulmonic Valve: The pulmonic valve is normal in structure and function. There is trace pulmonic regurgitation. Great Vessels: The aortic root is normal size. The dimensions of the ascending aorta are normal. The pulmonary artery is normal size. Pericardium/ Pleura There is no pericardial effusion. There is no pleural effusion. MMode/2D Measurements & Calculations LVIDd: 4.1 cm RA long axis LVOT diam LVIDs: 3.1 cm LA A2 area: 25.6 cm FS: 23.7 % LA A4 area: 19.3 cm RA area AoV Opening EPSS: 0.74 cm LA length (vol): 6.8 cm IVSd: 0.96 cm LA vol: 61.3 ml : 22.6 cm Ao root diam LVPWd: 1.0 cm LA vol index RA vol : 73.6 ml Aortic Jxn RA IVC diam: 1.8 cm : 40.4 mm2 asc Aorta Diam: 3.9 cm LV ruth. diameter/BSA LV sys. diameter/BSA RVD1 (basal) RVD2 (mid) (cm/m^2): 2.3 (cm/m^2): 1.7 : 2.8 cm TAPSE: 2.7 cm Doppler Measurements & Calculations Ao V2 max MV E max quinn MV E/A: 1.1 PA V2 max : 120.1 cm/sec : 70.8 cm/sec Med Peak E' Quinn : 67.5 cm/sec Ao max PG MV A max quinn PA mean PG : 5.8 mmHg : 62.5 cm/sec E/E' med: 9.4 : 1.1 mmHg Ao mean PG MV P1/2t: 59.5 msec Lat Peak E' Quinn LVOT Max Quinn E/E' lat: 6.8 : 100.8 cm/sec E/e' average: 8.1 Pulm A Revs Dur KURT(I,D): 3.6 cm sev ratio MV A dur: 0.11 sec MV dec time MV P1/2t max quinn Ao V2 mean LV V1 max PG : 0.20 sec : 85.5 cm/sec MVA(P1/2t): 3.7 cm2 Ao V2 VTI: 25.1 cm LV V1 VTI KURT(V,D): 3.4 cm2 : 22.1 cm PA V2 mean KURT indexed to BSA Pulm A Revs Dur - MV A : 50.1 cm/sec (cm^2/m^2): 2.0 Dur: 0.00 msec PA pr(Accel) : 9.6 mmHg Electronically signed by: Donny Phipps on Reading Physician:04/08/2017 01:37 PM
--- NOTE | 2017-04-08 14:30 | NUR ---
Off unit Pt off unit to stress test, [employer] notified. Addendum: 04/08/17 at 1658 by DEB DEEJSUS RN Pt back on unit, [employer] notified.
--- NOTE | 2017-04-08 15:10 | NUR ---
Social Work-screenign: Data:EMR reviewed. Pt is a 57 y/o male who was admitted on 04/07/17 for chest pain per H&P. Pt's insurance is [employer] and PCP is Simon Ramsay DO. EMR reviewed. SW met with pt and Eula [phone] to discuss discharge planning, SW role explained. Pt is alert and oriented x3. Pt resides at home with his where he remains independent with ADLs. Pt drives and does not use any DME. Pt has no HH Or SNF history. SW discussed DPOA/ advanced directive, pt confirms he has completed this. Pt and decline any SW needs. Pt's to provide transport home at discharge. SW provided phone number and plan on white board in room. No anticipated discharge needs. SW will continue to follow if needs arise. Assessment:Pt who is independent at baseline. Plan:Pt to discharge home when medically stable via POV. No anticipated discharge needs. SW will continue to follow if needs arise [facility]
[2017-04-08 16:56] VITALS: BP 126/76; PULSE 76; RESP 18; O2SAT 97
--- NOTE | 2017-04-08 17:14 | DRSVH ---
PROCEDURE: EITHER REST OR STRESS ONLY Pharmacological stress myocardial perfusion SPECT with gated imaging and ejection fraction. RADIOPHARMACEUTICAL: 21.6 mCi of Tc-99m tetrafosmin intravenously at peak pharmacologic stress. INDICATIONS: 57-year-old male with chest pain and jaw pain. The patient has history of syncope. Evalu ate myocardial ischemia. TECHNIQUE: Radiopharmaceutical was injected at peak stress test. SPECT images were obtained. SPECT myocardial perfusion images were displayed in short axis, horizontal long axis, and vertical long ax is views. Gated images were reviewed using [employer] software. COMPARISON: None. CARDIAC STRESS: A pharmacologic stress test was performed under the supervision of an attending staff, using an infus ion of Lexiscan. Hemodynamic data: There is hypotensive normal heart rate response to pharmacologic stress. Symptoms: The patient denied anginal chest pain during drug infusion. Aminophylline: 100 mg EKG: No diagnostic EKG changes of ischemia; no ectopy. FINDINGS: Raw data: There is good tracer uptake by the myocardium. No significant motion artifacts. Left ventricular function: Gated images demonstrate normal left ventricle wall thickening. No segme ntal wall motion abnormalities. Left ventricle end-diastolic volume is normal. Left ventricle stres s ejection fraction is greater than 56%; normal values are above 45%. Myocardial perfusion: There is normal distribution of activity in the left and right ventricular katie cardium. No perfusion defects. IMPRESSION: 1. Normal pharmacological stress myocardial perfusion images. 2. Normal left ventricular volume and systolic function. 3. Hypotensive response to Lexiscan infusion. No chest pain or diagnostic EKG changes for ischemia. PQRS ATTESTATIONS: Measure 322 - Is this imaging test primarily performed on a low-risk surgery patient for preoperative evaluation within 30 days preceding their low-risk non-cardiac surgery? Low-risk surgery is defined as cardiac or myocardial infarction less than 1%, including (but not limited to) endoscopic pr ocedures, superficial procedures, cataract surgery, and excisional breast surgery: Answer: No Measure 323 - Is this imaging test performed primarily for the monitoring of an asymptomatic patient who had percutaneous coronary intervention on the visit date or within 2 years of the visit date? An swer: No Measure 324 - Is this imaging test performed primarily for the initial detection and risk assessment on an asymptomatic, low coronary heart disease patient? Low CHD risk definition = clinicians should consider the maximum number of available patient factors used to estimate risk based on [place] (A TP III criteria), typically age, gender, diabetes, smoking status, and use of blood pressure medicati on, and integrate age appropriate estimates for missing elements, such as LDL or standard blood press ure. Answer: No Dictated by: Remingotn Mauro M.D. on 04/08/2017 at 17:09 Approved by: Remington Mauro M.D. on 04/08/2017 at 17:12
[2017-04-08] MEDS ORDERED: Polyethylene Glycol (PEG) 17 Gm Powder PO ONE (18:50)
--- NOTE | 2017-04-08 18:57 | PCM.PNMED ---
Subjective Date of Service April 08, 2017 Subjective Patient has had an uneventfull day, MPS negative, echo unrevealing. Fecal impaction noted, one bm today so far. Exam Vital Signs Vital Sign - Last Date Time Temp Pulse Resp B/P Pulse Ox O2 Delivery O2 Flow Rate FiO2 04/08/17 16:56 36.7 76 18 126/76 97 Room Air Intake and Output 04/07/17 04/07/17 04/08/17 Cumulative From/Thru 15:00 23:00 07:00 04/07/17 18:59 - 04/08/17 06:55 Intake Total 1000 ml 1300 ml 2300 ml Output Total 1625 ml 1625 ml Balance 1000 ml -325 ml 675 ml Intake Oral 250 ml 250 ml IV Total 1000 ml 1050 ml 2050 ml Output Urine Total 1625 ml 1625 ml Exam Cardia regular no murmur Resp, clear to ap GI, diffuse tenderness, throughout. skin clear no rash Lab and Diagnostics Result Diagram: 04/08/1761904/08/17 0620 X-Rays, CTs and MRIs PROCEDURE: X-RAY CHEST ONE VIEW, PORTABLE ([id number]) IMPRESSION: No acute cardiopulmonary disease. PROCEDURE: CT ABDOMEN AND PELVIS WITH CONTRAST ([id number]) IMPRESSION: Overall, no acute abnormality. Normal appendix. Unchanged left renal cyst. Large amount of stool raising possibility of constipation or fecal impaction. Please correlate clinically 12-lead ECG normal sinus rhythm with a rate of 67 probable anteroseptal infarct, old Assessment & Plan 57-year-old male with history of tobacco dependence, COPD, and chronic sinusitis with recent ENT surgery who originally presented to the ED earlier today for complaints of chest pressure with right jaw pain that began around lunchtime. He was discharged home and then returned for a near syncopal episode shortly after discharge. 1. Near syncopal episode, POA -suspect vasovagal from constipation 2. Constipation poa active -dulcolax, miralax, colace, reevaluate in am 3. Chest pain, POA - low risk scan echo ok 4. COPD, POA Not in acute exacerbation DuoNeb when necessary for shortness of breath Recommend outpatient follow-up 5. Tobacco Dependence, POA Cessation encouraged Nicotine patch when necessary Tylenol when necessary for pain/fever Zofran when necessary for nausea Bowel regimen when necessary constipation CODE STATUS: Full resuscitation Disposition: Patient is admitted under observation status with expected length of stay less than 2 midnights due to risk of adverse events, decompensation, and medical complexity VTE Prophylaxis: Sub-Q Enoxaparin, SCDs VTE Mechanical Devices: Intermittant Pneumatic CD Resuscitation Status: CPR: Attempt Resuscitation Edilia Lamb MD April 08, 2017 18:57
[2017-04-08 20:57] VITALS: BP 121/84; PULSE 73; RESP 18; O2SAT 97
[2017-04-09 01:04] VITALS: BP 118/81; PULSE 77; RESP 18; O2SAT 96
[2017-04-09] MEDS: Sodium Chloride LOK Flush 10 mL Syringe IVFLUSH SCH ×2 (02:26→08:28)
[2017-04-09 05:14] VITALS: PULSE 74
[2017-04-09 06:02] VITALS: BP 125/87; PULSE 63; RESP 18; O2SAT 96
[2017-04-09 06:47] LABS: BASOPHILS % (AUTO) 0.2 % (0-3); MONOCYTES % (AUTO) 11.4 % (4-12); Mean Corpuscular Hemoglobin 31.1 pg (27.0-35.0); Mean Corpuscular Volume 90.5 fL (81-100); NEUTROPHILS % (AUTO) 72.9 % (40-74); Platelet Count 291 bil/L (150-400)
[2017-04-09 08:00] VITALS: PULSE 78
[2017-04-09 09:21] VITALS: BP 122/88; PULSE 68; RESP 18; O2SAT 96
--- NOTE | 2017-04-09 10:20 | PCM.DIMED ---
Discharge Instructions Date of Service April 09, 2017 Dates of Hospitalization April 07, 2017 at 21:36 Discharge Diagnosis Discharge Diagnosis 1. Near syncopal episode, POA 2. Constipation poa improving 3. Chest pain, POA, resolved 4. COPD, POA, stable 5. Tobacco Dependence, POA, chronic 6. Patent foramen ovale Diet Heart Healthy, Other (High Fiber Diet) Patient Instructions Follow-up with PCP in: 1 week Edilia Lamb MD April 09, 2017 10:19
--- NOTE | 2017-04-09 10:22 | NUR ---
Social Work: Discharge Data: Pt is on day 2 of hospitalization. EMR reviewed. D/C orders are in. No d/c planning needs. SENIOR BUSINESS ANALYST will continue to follow if needs arise. Assessment: Pt who is independent at baseline. Plan: Pt will d/c home via POV today. No d/c planning needs. SENIOR BUSINESS ANALYST will continue to follow if needs arise. [facility]
[2017-04-09] MEDS ORDERED: POLY17PO6 PO (10:23)
[2017-04-09] MEDS ORDERED: BISA-67 PO (10:23)
--- NOTE | 2017-04-09 10:32 | PCM.DC.MED ---
Discharge Summary Date of Service April 09, 2017 Dates of Hospitalization Date of Hospital Admission April 07, 2017 at 21:36 Date of Discharge: April 09, 2017 Providers: Admitting Physician: James Blount MD Primary Care Physician: Ryne Ramsay DO Attending Physician: James Blount MD Diagnosis at Time of Discharge Diagnosis at Time of Discharge 1. Near syncopal episode, POA 2. Constipation poa improving 3. Chest pain, POA, resolved 4. COPD, POA, stable 5. Tobacco Dependence, POA, chronic 6. Patent foramen ovale, poa, new diagnosis Procedures XRay, CTs & MRIs PROCEDURE: X-RAY CHEST ONE VIEW, PORTABLE ([id number]) IMPRESSION: No acute cardiopulmonary disease. PROCEDURE: CT ABDOMEN AND PELVIS WITH CONTRAST ([id number]) IMPRESSION: Overall, no acute abnormality. Normal appendix. Unchanged left renal cyst. Large amount of stool raising possibility of constipation or fecal impaction. Please correlate clinically PROCEDURE: CT ABDOMEN AND PELVIS WITH CONTRAST ([id number]) INDICATIONS: abd pain TECHNIQUE: After the administration of intravenous contrast, 5 mm thick sections acquired from the diaphragm to the symphysis. 5 mm coronal and sagittal reformats were acquired. For radiation dose reduction, the following was used: automated exposure control, adjustment of mA and/or kV according to patient size. COMPARISON: [facility], CT, CT ABD PELVIS W CON, 11/07/2016, 23:16. FINDINGS: Image quality: Excellent. ABDOMEN: Lung bases: Lung bases are clear. Heart size is normal. Solid organs: 4 mm hypodensity in the right lobe liver on image 22 is too small to characterize however unchanged since 11/07/16. Otherwise, liver and spleen are normal in size and enhancement. Gallbladder unremarkable. Biliary system is non dilated. Pancreas enhances normally. No adrenal nodules. Simple appearing left renal cyst measuring 2 cm in the inferior pole, grossly unchanged. No hydronephrosis. Peritoneum and bowel: Bowel loops demonstrate normal wall thickness and caliber. No free fluid or air. The appendix appears normal. The rectum contains a large amount of stool otherwise unremarkable. Nodes and vessels: No retroperitoneal or mesenteric adenopathy by size criteria. Aorta and inferior vena cava are normal in size. Miscellaneous: No ventral hernias. PELVIS: Genitourinary: Bladder wall thickness is normal. Miscellaneous: No inguinal hernias or adenopathy. Bones: No suspicious bony lesions. No vertebral body compression fractures. IMPRESSION: Overall, no acute abnormality. Normal appendix. Unchanged left renal cyst. Large amount of stool raising possibility of constipation or fecal impaction. Please correlate clinically Dictated by: Christofer Astudillo M.D. on 04/07/2017 at 19:55 ECG 12 Lead normal sinus rhythm with a rate of 67 probable anteroseptal infarct, old Cardiac Echo Impression Name: JOSE ANTONIO PILLAI Date: 04/08/2017 Height: 67 in Hospital Exam Location: [facility] Weight: 157 lb Gender: Male BSA: 1.8 m2 : 1960 Age: 57 yrs BP: 123/67 mmHg Reason For Study: Chest pain Ordering Physician: James Bettencourt Performed By: Will Starr Referring Physician: SHAYY ONEAL Interpretation Summary The ejection fraction is estimated to be 50-55%. A patent foramen ovale is present. There is no significant valvular heart disease. Procedure: A two-dimensional transthoracic echocardiogram with color flow and Doppler was performed. There is no prior echocardiogram noted for this patient. The study quality was technically adequate. The patient was in normal sinus rhythm during the exam. Left Ventricle: The left ventricle is normal in size. There is normal left ventricular wall thickness. The ejection fraction is estimated to be 50-55%. Spectral Doppler of the mitral inflow yields an E/A ratio that is between 0.8 and 1.5. Right Ventricle: The right ventricle is normal in size and function. Atria: The left atrial size is normal. Right atrial size is normal. Borderline right atrial enlargement. A patent foramen ovale is present. Mitral Valve: The mitral valve is normal in structure and function. There is trace mitral regurgitation. Aortic Valve: The aortic valve is normal in structure and function. There is trace aortic regurgitation. Tricuspid Valve: The tricuspid valve is normal in structure and function. Pulmonary artery pressures cannot be estimated because of the lack of a measurable TR jet velocity. There is trace tricuspid regurgitation. Pulmonic Valve: The pulmonic valve is normal in structure and function. There is trace pulmonic regurgitation. Great Vessels: The aortic root is normal size. The dimensions of the ascending aorta are normal. The pulmonary artery is normal size. Pericardium/ Pleura There is no pericardial effusion. There is no pleural effusion. Other Diagnostics PROCEDURE: EITHER REST OR STRESS ONLY Pharmacological stress myocardial perfusion SPECT with gated imaging and ejection fraction. RADIOPHARMACEUTICAL: 21.6 mCi of Tc-99m tetrafosmin intravenously at peak pharmacologic stress. INDICATIONS: 57-year-old male with chest pain and jaw pain. The patient has history of syncope. Evaluate myocardial ischemia. TECHNIQUE: Radiopharmaceutical was injected at peak stress test. SPECT images were obtained. SPECT myocardial perfusion images were displayed in short axis, horizontal long axis, and vertical long axis views. Gated images were reviewed using [employer] software. COMPARISON: None. CARDIAC STRESS: A pharmacologic stress test was performed under the supervision of an attending staff, using an infusion of Lexiscan. Hemodynamic data: There is hypotensive normal heart rate response to pharmacologic stress. Symptoms: The patient denied anginal chest pain during drug infusion. Aminophylline: 100 mg EKG: No diagnostic EKG changes of ischemia; no ectopy. FINDINGS: Raw data: There is good tracer uptake by the myocardium. No significant motion artifacts. Left ventricular function: Gated images demonstrate normal left ventricle wall thickening. No segmental wall motion abnormalities. Left ventricle end- diastolic volume is normal. Left ventricle stress ejection fraction is greater than 56%; normal values are above 45%. Myocardial perfusion: There is normal distribution of activity in the left and right ventricular myocardium. No perfusion defects. IMPRESSION: 1. Normal pharmacological stress myocardial perfusion images. 2. Normal left ventricular volume and systolic function. 3. Hypotensive response to Lexiscan infusion. No chest pain or diagnostic EKG changes for ischemia. Brief History 57-year-old male with history of tobacco dependence, COPD, and chronic sinusitis with recent ENT surgery who originally presented to the ED earlier today for complaints of chest pressure with right jaw pain that began around lunchtime. Patient described that chest pressure as a dull substernal ache that lasted about 20-30 minutes and reported radiation to his right jaw. The patient noted previous right jaw pain but not to this extent so he was worried and came in for evaluation. He also noted some mild numbness and tingling of his fingertips with the chest pain episode, but denied any shortness of breath, nausea, diaphoresis, dizziness, vision changes, focal weakness, or headache. By the time he reached the ED his symptoms had resolved. In the ED, his vitals were noted to be normal and stable. His CBC and CMP were unremarkable and he had troponins needed 3. He also had a benign EKG, so he was discharged home with instructions to follow up with PCP for an outpatient stress test. After discharge, on the way home patient noted that he acutely became dizzy and had a near syncopal episode. Luckily his is driving and return back to the ER for further evaluation. It was noted by ER staff that on re-admission, patient was pale, diaphoretic, and lethargic. He was noted to be hypotensive with a blood pressure 96/56, but remain afebrile with a pulse of 68, saturating 100% percent on room air. A repeat EKG was performed, which showed normal sinus rhythm with a rate of 67 and probable anteroseptal old infarct. This was essentially unchanged. Patient did complain of some abdominal pain upon arrival to the ER so a CT abdomen was performed, which showed moderate stool impaction but no other acute disease. Patient reports that with the second incident he did not have any chest pain, shortness of breath, jaw pain, or headache. He did not notice any triggers and reports he has not had any URI symptoms recently. He reports he had a similar presentation last October when he had a syncopal episode, was taken to the ER, and subsequently diagnosed with diverticulitis with stool impaction. He reports he was sent home with antibiotics. Subsequent outpatient colonoscopy showed diverticulosis with a couple tubular adenoma polyps. Prior to today, patient reports he has been at baseline. He is able to perform his ADLs without any dyspnea or chest pain. He denies any recent medication changes, but has been on multiple antibiotic courses for his sinusitis. He recently has sinus surgery with ENT and just completed a short prednisone course. Prior to the surgery he was taking plenty of narcotics, he reports, but he has tapered himself off of that has not taken any in the past few days. He reports he generally drinks 3-6 beers per night, but has not had any since the surgery one week ago. Denies any illicit drug usage. Hospital Course 57-year-old male with history of tobacco dependence, COPD, and chronic sinusitis with recent ENT surgery who originally presented to the ED earlier today for complaints of chest pressure with right jaw pain that began around lunchtime. He was discharged home and then returned for a near syncopal episode shortly after discharge. 1. Near syncopal episode, POA -suspect vasovagal from constipation 2. Constipation poa active -dulcolax, miralax, colace, reevaluate in am -patient had 2 large BM's here in the hospital -discharge on miralax every day, prunes daily, high fiber diet, dulcolax prn, and close follow up with his pcp 3. Chest pain, POA - low risk scan echo ok 4. Patnet formen ovale; poa, stable -incidentally noted on echo -patient will follow up with pcp for this 4. COPD, POA Not in acute exacerbation DuoNeb when necessary for shortness of breath Recommend outpatient follow-up 5. Tobacco Dependence, POA Cessation encouraged Nicotine patch when necessary Tylenol when necessary for pain/fever Zofran when necessary for nausea Bowel regimen when necessary constipation CODE STATUS: Full resuscitation Disposition: Patient is admitted under observation status with expected length of stay less than 2 midnights due to risk of adverse events, decompensation, and medical complexity Exam Vital Signs (Last) Date Time Temp Pulse Resp B/P Pulse Ox O2 Delivery O2 Flow Rate FiO2 04/09/17 09:21 36.9 68 18 122/88 96 Room Air Exam Cardia regular no murmur Resp, clear to ap GI, no pain or discomfort skin clear no rash Patient up and around with no pain or symptoms would like to go home Test 04/07/17 19:10 04/08/17 00:00 04/08/17 06:20 04/09/17 06:20 Thyroid Stimulating Hormone (TSH) 3.160uIU/mL (0.450-4.500) Total Bilirubin 0.2mg/dL (0.0-1.2) Aspartate Amino Transf (AST/SGOT) 13U/L (0-50) Alanine Aminotransferase (ALT/SGPT) 17U/L (0-44) Alkaline Phosphatase 40U/L (25-160) Troponin T 0.010ug/L (0.0-0.011) Total Protein 5.8g/dL (6.4-8.4) Albumin 3.7g/dL (3.4-5.0) Triglycerides Level 102mg/dL (0-149) Cholesterol Level 158mg/dL (100-199) LDL Cholesterol, Calculated 80.600mg/dL (0-99) VLDL Cholesterol 20.400mg/dL HDL Cholesterol 57mg/dL (>39) Cholesterol/HDL Ratio 2.77 (0.0-4.4) Procalcitonin 0.05ng/mL (0.00-0.08) White Blood Count 9.2th/mm3 (3.8-10.1) Red Blood Count 4.73mil/mm3 (4.40-5.80) Hemoglobin 14.7g/dL (13.8-17.2) Hematocrit 42.8% (41.0-50.0) Mean Corpuscular Volume 90.5fL (81-100) Mean Corpuscular Hemoglobin 31.1pg (27.0-35.0) Mean Corpuscular Hemoglobin Concent 34.3% (32.0-37.0) Red Cell Distribution Width 14.0% (12.3-15.4) Platelet Count 291bil/L (150-400) Neutrophils (%) (Auto) 72.9% (40-74) Lymphocytes (%) (Auto) 14.2% (14-46) Monocytes (%) (Auto) 11.4% (4-12) Eosinophils (%) (Auto) 1.0% (0-5) Basophils (%) (Auto) 0.2% (0-3) Sodium Level 141mEq/L (134-144) Potassium Level 4.6mEq/L (3.5-5.2) Chloride Level 103mEq/L (97-108) Carbon Dioxide Level 26mmol/L (18-29) Blood Urea Nitrogen 15mg/dL (6-24) Creatinine 0.75mg/dL (0.76-1.27) Estimat Glomerular Filtration Rate 113mL/min (>59) Glucose Level 97mg/dL (60-99) Calcium Level 9.0mg/dL (8.5-10.1) Discharge Medications As needed Bisacodyl (Dulcolax) 5 Mg Tablet.dr 5 MG PO DAILY PRN PRN For Constipation Prescribed by: Edilia LONDON MD Polyethylene Glycol 3350 (Miralax) 17 Gm Powd.pack 17 GM PO DAILY PRN PRN For Constipation Prescribed by: Edilia LONDON MD Followup Plan Discharge Diet: Heart Healthy, Other Follow-up with PCP in: 1 week Time spent 35 minutes time spent discharging patient home today, so far. copies to: Ryne Ramsay D Geoffrey MD April 09, 2017 10:32
--- NOTE | 2017-04-09 13:15 | NUR ---
DISCHARGE Patient dc'd home at 1145, ambulated off unit accompanied by . Vital signs stable, alert & oriented, denies discomfort and in no apparent distress. Iv dc'd intact, all belongings returned. All instructions for diet, activity, medications, prescriptions and follow up reviewed with patient who reports understanding. Addendum: 04/09/17 at 1357 by DEB DEJESUS RN This RN agrees with above.
== END 2017-04-09 11:48 | disposition home or self-care (01) ==
LOC: SED 18:53 → MPC 21:36
PROVIDERS: ADMIT Hospitalist; ATTEND Hospitalist
DX: R55 Syncope and collapse (principal); K59.00 Constipation, unspecified; R07.9 Chest pain, unspecified; J44.9 Chronic obstructive pulmonary disease, unspecified; F17.210 Nicotine dependence, cigarettes, uncomplicated; Q21.1 Atrial septal defect; R10.9 Unspecified abdominal pain; M54.12 Radiculopathy, cervical region; J32.8 Other chronic sinusitis; K57.30 Diverticulosis of large intestine without perforation or abscess without bleeding; Z72.89 Other problems related to lifestyle
CPT/HCPCS: 36415; 74177; 78451; 80048; 80053; 80061; 84145; 84443; 84484; 85025; 93005; 93017; 96360; 99285; A9502; C8929; G0378; J0280; J1650; J2785; J7030; Q9967

== ENCOUNTER 2017-08-25 08:27 | Emergency (ER) | payer OTHER ==
[~2017-08-25] VITALS: Ht 170.2 cm; Wt 72.7 kg
[~2017-08-25 08:27] MED LIST changes: +BISA-67 PO; -NAPR220C11 PO; +POLY17PO6 PO; -PRE20 PO
[2017-08-25 08:32] VITALS: BP 128/74; PULSE 77; RESP 16; O2SAT 100
[2017-08-25] MEDS ORDERED: diphenhydrAMINE 25 mg Capsule PO ONE (08:45)
--- NOTE | 2017-08-25 09:18 | ED.REPORT ---
HPI-Allergic Reaction Date of Service Aug 25, 2017 ED Provider: Kameron Villalba DO Patient is a 57 year old male with a history of COPD and diverticulitis who presents to the ED after having an allergic reaction to a bee stung that happened yesterday at 1300. He reports that he had hives and a rash, which have since resolved. The patient states that he was seen at [facility] yesterday after the reaction happened where he received epinephrine. Patient reports that he is still feeling itchy and is experiencing chills. The patient is also concerned because he has been having "indigestion", constipation and near syncopal episodes. The patient was seen 4 months ago for near syncope and had a normal stress test and EKG. Nursing Notes Stated Complaint: POST ALLERGIC REACTION Chief Complaint: Allergic Reaction Nursing Notes Reviewed: Yes Allergies: Coded Allergies: No Known Allergies (Unverified , 04/07/17) Scheduled Prednisone (PredniSONE) 20 Mg Tablet 20 MG PO DAILY Scheduled PRN Bisacodyl (Dulcolax) 5 Mg Tablet.dr 5 MG PO DAILY PRN PRN For Constipation Polyethylene Glycol 3350 (Miralax) 17 Gm Powd.pack 17 GM PO DAILY PRN PRN For Constipation General Time Seen by MD: 09:04 Chief Complaint Allergic reaction Hx Obtained From: Patient Arrived By: Walk-in Onset Occurred: Yesterday Context of Onset: Insect bite/sting Symptom Duration: 16 - 30 minutes Location: : Arm right: Chest Quality: Itching, Painful Severity: Current: Mild Recent Healthcare: Recent doctor visit Past Medical History Past Medical History Notes: Past Medical History syncope COPD Reports: Diverticulitis Past Surgical History none reported Smoking History Current Every Day Smoker Social History Alcohol Use: 3-5 per day Other Social History: Good social support, Ambulatory Status Independent Review of Systems Constitutional: Reports: Chills GI: Reports: Abdominal pain, Constipation Skin: Reports Rash Allergy / Immune: Reports: Hives, Itching Complete sys rev & neg: except as marked. Physical Exam Initial Vital Signs Vital Signs (First) Date Time Temp Pulse Resp B/P Pulse Ox O2 Delivery O2 Flow Rate FiO2 08/25/17 08:32 36.7 77 16 128/74 100 Room Air Initial VS: Reviewed General/Constitutional: Awake, Alert, No acute distress Respiratory / Chest: Atraumatic, Breath sounds NL, Breath sounds = bilat, No respiratory distress Cardiovascular: Heart rate NL, Regular rhythm, Heart sounds NL Skin: Atraumatic, Color NL, Warm, Dry bee sting on the medial portion of both upper arms with surrounding urticaria Head / Eyes: Atraumatic, Normocephalic Abdomen: Atraumatic, Soft, Non-tender Neurologic: Oriented X3, Speech NL Upper Extremity / MS: Atraumatic, Full range of motion Lower Extremity / Pelvis / MS: Atraumatic, Full range of motion Interpretation & Diagnostics ECG Interpretation Time: 10:05 Interpreted by: ED physician Normal ECG Interpretation: Normal rate (64), Normal sinus rhythm Re-Eval/Medical Decision Med Decision/Clinical Course Lesion presents with multiple complaints. It seems that he has acute on chronic constipation and declines any intervention for this. He also reportedly has chronic presyncopal episodes with a normal EKG today and a recently normal cardiac stress test within the last year. Additionally he has a minor allergic reaction to a bee sting and he'll be treated with prednisone and then as needed Benadryl for this. Return precautions given. Re-Evaluation/Progress : Time of Eval: 10:24 Re-Evaluation/Progress Note: Discussed EKG and plan for discharge. Patient understands and agrees to plan. All questions were addressed. Counseled Regarding: Diagnosis, Lab results, Need for follow-up, When/why to return to ED Discharge & Departure Primary Impression: Constipation Constipation type: unspecified constipation type Qualified Code: K59.00 - Constipation, unspecified Additional Impression: Bee sting reaction Encounter type: initial encounter Injury intent: accidental or unintentional Qualified Code: T63.441A - Toxic effect of venom of bees, accidental (unintentional), initial encounter Disposition: Home Discharge Condition All VS Reviewed: Yes Condition: Stable Patient Instructions: Constipation (ED) Additional Instructions: Your EKG was normal and reassuring. You can take Benadryl for any continuous itching. Take the Prednisone as prescribed. You can take ibuprofen as needed for any pain. Follow up with your primary care physician next week. Return to the emergency department if you develop any new or concerning symptoms including fever, chills, throat swelling, vomiting or worsening symptoms. Referrals: Ryne Ramsay DO (PCP) Scribe Attestation Portions of this note were transcribed by Gretta Nick. I, Dr. Rowena Abrams personally performed the history, physical exam and medical decision-making; I reviewed and confirmed the accuracy of the information in the transcribed note. Signed by: Natalie Nieto, 08/25/17 copies to: Ryne Ramsay Timothy S DO Aug 25, 2017 09:18 Eileen Nick Aug 25, 2017 09:25
[2017-08-25] MEDS ORDERED: predniSONE 20 mg Tablet PO ONE (09:25)
[2017-08-25] MEDS ORDERED: PRE20 PO (10:24)
== END 2017-08-25 10:46 | disposition home or self-care (01) ==
LOC: SED 08:27
DX: T63.441A Toxic effect of venom of bees, accidental (unintentional), initial encounter (principal); K59.00 Constipation, unspecified; X58.XXXA Exposure to other specified factors, initial encounter; Y93.9 Activity, unspecified; Y92.9 Unspecified place or not applicable; Y99.8 Other external cause status; F17.200 Nicotine dependence, unspecified, uncomplicated